=== PATIENT | female | born 1960 | race Caucasian/White ===

== ENCOUNTER 2024-09-04 08:34 | Outpatient (CLI) | payer BC, SELFPAY | END 2024-09-04 08:35 | disposition home or self-care (01) | LOC: NFLDREF 09-05 12:49 | PROVIDERS: PCP Registered Nurse; Referring Provider Registered Nurse; Visit Provider Registered Nurse | DX: E03.9 Hypothyroidism, unspecified (principal); Z13.228 Encounter for screening for other metabolic disorders; Z13.220 Encounter for screening for lipoid disorders | CPT/HCPCS: 80053; 80061; 84443 ==

== ENCOUNTER 2024-12-10 14:28 | Outpatient (CLI) | payer BC, SELFPAY ==
--- NOTE | 2024-12-10 14:40 | CRLHL7_ITS ---
For Patients: As a result of the Century Cures Act, medical imaging exams and procedure reports are released immediately into your electronic medical record. You may view this report before your referring provider. If you have questions, please contact your health care provider. BILATERAL SCREENING MAMMOGRAM WITH COMPUTER-AIDED DETECTION AND TOMOSYNTHESIS TECHNIQUE: CC and MLO views were obtained. These mammographic images have been obtained using full-field digital technique. These mammographic images were interpreted with the benefit of computer-aided detection. Breast Tomosynthesis was used in this interpretation. COMPARISON FILM: No comparison available. FINDINGS: There are scattered areas of fibroglandular density. IMPRESSION: There is no radiographic evidence for malignancy. ASSESSMENT: BI-RADS Category 1: Negative RECOMMENDATION: Routine screening mammogram in 1 year. A lay language report of this examination will be provided to the patient. Lorenzo Delgado M.D. Diagnostic Radiologist [email or web address] SP/Dictated by: Lorenzo Delgado MD @ 12/23/2024 8:21:00 AM (Electronically Signed)
== END 2024-12-10 14:29 | disposition home or self-care (01) ==
LOC: MAMMO 14:28
PROVIDERS: PCP Registered Nurse; Visit Provider Registered Nurse
DX: Z12.31 Encounter for screening mammogram for malignant neoplasm of breast (principal)
CPT/HCPCS: 77063; 77067

== ENCOUNTER 2025-05-08 13:43 | Outpatient (CLI) | payer BC, SELFPAY ==
--- NOTE | 2025-05-08 14:00 | CRLHL7_ITS ---
For Patients: As a result of the Century Cures Act, medical imaging exams and procedure reports are released immediately into your electronic medical record. You may view this report before your referring provider. If you have questions, please contact your health care provider. Indication: Nasal congestion. Technique: Noncontrast CT images of the paranasal sinuses. Comparison: None. Findings: No air-fluid levels to suggest acute sinusitis. Minimal mucosal thickening in the maxillary sinuses. The ethmoid infundibula are widely patent. Minimal mucosal thickening in the frontal recesses. The frontal sinuses are otherwise clear. Minimal mucosal thickening in the ethmoid air cells. The sphenoid sinuses and sphenoethmoidal recesses are clear. Mild to moderate sinusoidal nasal septal deviation with leftward deviation of the anterior septum and rightward deviation of the septum more posteriorly. There is a 4 mm rightward directed septal spur. No nasal cavity masses. Trace right mastoid opacification. Pixl-[id number] right temporomandibular joint degenerative changes. Impression: 1. Minimal paranasal sinus mucosal disease. 2. Sinusoidal nasal septal deviation. Rightward directed septal spur. Please note that all CT scans at this facility use dose modulation, iterative reconstruction, and/or weight-based dosing when appropriate to reduce radiation dose to as low as reasonably achievable. Dictated by Lan Acharya MD @ 05/08/2025 2:43:09 PM (Electronically Signed)
== END 2025-05-08 13:44 | disposition home or self-care (01) ==
LOC: CT 13:45
PROVIDERS: PCP Registered Nurse; Visit Provider Otolaryngology
DX: R09.81 Nasal congestion (principal); J34.2 Deviated nasal septum
CPT/HCPCS: 70486

== ENCOUNTER 2025-09-22 16:26 | Outpatient (CLI) | payer BC, SELFPAY ==
[2025-09-22 23:09] LABS: Chlamydia DNA Amplified* NOT DETECTED (No Detected); GC DNA Amplified* NOT DETECTED (No Detected)
[2025-09-24 14:59] LABS: HPV Source Cervix
[2025-09-30 10:10] LABS: Pap Test Digital Imaging Done
== END 2025-09-22 16:27 | disposition home or self-care (01) ==
PROVIDERS: Visit Provider Physician Assistant Medical
DX: Z00.00 Encounter for general adult medical examination without abnormal findings (principal)
CPT/HCPCS: 87110; 87140; 87491; 87591; 87624; 87625; 88141; 88142; 88175

== ENCOUNTER 2025-09-24 07:31 | Outpatient (CLI) | payer BC, SELFPAY | END 2025-09-24 07:32 | disposition home or self-care (01) | LOC: NFLDREF 09-30 06:00 | PROVIDERS: Visit Provider Physician Assistant Medical | DX: Z00.00 Encounter for general adult medical examination without abnormal findings (principal); E03.9 Hypothyroidism, unspecified | CPT/HCPCS: 80053; 80061; 84443 ==

== ENCOUNTER 2025-10-06 13:50 | Outpatient (CLI) | payer BC, SELFPAY ==
--- NOTE | 2025-10-06 14:00 | CRLHL7_ITS ---
For Patients: As a result of the Century Cures Act, medical imaging exams and procedure reports are released immediately into your electronic medical record. You may view this report before your referring provider. If you have questions, please contact your health care provider. INDICATION: Lung cancer screening. History of smoking. TECHNIQUE: Low-dose lung cancer screening non-contrast CT chest. Dose reduction techniques were used. COMPARISON: None. FINDINGS: NODULES: 3 millimeter nodule right upper lobe, 3/39. LUNGS AND PLEURA: Mild paraseptal emphysema in the lung apices along with pleural-parenchymal scarring. MEDIASTINUM: No adenopathy. CORONARY ARTERY CALCIFICATION: None. LIMITED UPPER ABDOMEN: Calcification in the liver, incidental. MUSCULOSKELETAL: Degenerative disc disease. IMPRESSION: Negative for lung cancer screening purposes. LUNG-RADS CATEGORY: 2: Benign. RADIOLOGIST RECOMMENDATION: Continue annual screening, if eligible, with low-dose CT chest in 12 months. Please note that all CT scans at this facility use dose modulation, iterative reconstruction, and/or weight-based dosing when appropriate to reduce radiation dose to as low as reasonably achievable. Dictated by Lorenzo Delgado MD @ 10/07/2025 8:56:23 AM (Electronically Signed)
== END 2025-10-06 13:51 | disposition home or self-care (01) ==
LOC: CT 13:51
PROVIDERS: Visit Provider Physician Assistant Medical
DX: Z12.2 Encounter for screening for malignant neoplasm of respiratory organs (principal); Z87.891 Personal history of nicotine dependence
CPT/HCPCS: 71271